=== PATIENT | female | born 1985 | race Caucasian/White ===

== ENCOUNTER 2020-01-10 13:57 | Outpatient (CLI) | payer BC ==
--- NOTE | 2020-01-10 17:16 | ULT ---
ULTRASOUND SOFT TISSUE OTHER (RIGHT AXILLA): History: Possible right axilla mass. FINDINGS/IMPRESSION: Sonographic evaluation of the region of palpable concern in the right axilla demonstrates a 1.3 x 0.4 x 0.9 cm non-shadowing well circumscribed oval hypoechoic solid mass with flow, consistent with a ly mph node. POS: [facility]
== END 2020-01-10 13:58 | disposition home or self-care (01) ==
LOC: BICULT 13:57
PROVIDERS: ATTEND Internal Medicine
DX: R22.31 Localized swelling, mass and lump, right upper limb (principal)
CPT/HCPCS: 76999

== ENCOUNTER 2020-01-28 08:18 | Outpatient (CLI) | payer BC ==
--- NOTE | 2020-01-28 08:57 | MMO ---
CLINICAL HISTORY: Patient is 34 years old and is seen for diagnostic exam and palpable abnormality in the right axilla. The patient has the following family history of breast cancer: maternal grandmother. VIEWS: The views performed were: bilateral craniocaudal with tomosynthesis; bilateral mediolateral oblique with tomosynthesis; and bilateral mediolateral with tomosynthesis. This study has been interpreted with the assistance of computer-aided detection. MAMMOGRAM FINDINGS: There are scattered fibroglandular densities. There are no suspicious masses, suspicious calcifications, or new areas of architectural distortion. IMPRESSION: THERE IS NO MAMMOGRAPHIC EVIDENCE OF MALIGNANCY. AGE APPROPRIATE SCREENING BASED ON RISK FACTORS IS RECOMMENDED. THE RESULTS OF THIS EXAM WERE SENT TO THE PATIENT. ACR BI-RADS Category 1 - Negative Further evaluation (including biopsy) should be based on clinical findings/suspicion. MAMMOGRAPHY NOTE: 1. A negative mammogram report should not delay a biopsy if a dominant of clinically suspicious mass is present. 2. Approximately 10% to 15% of breast cancers are not detected by mammography. 3. Adenosis and dense breasts may obscure an underlying neoplasm. Reported by: SHAYLA GIRALDO MD Electonically Signed: [id number]
== END 2020-01-28 08:19 | disposition home or self-care (01) ==
LOC: BICMAMMO 08:18
PROVIDERS: ATTEND Internal Medicine
DX: R59.0 Localized enlarged lymph nodes (principal)
CPT/HCPCS: 77066; G0279

== ENCOUNTER 2021-11-27 12:34 | Outpatient (CLI) | payer BC | END 2021-11-27 12:35 | disposition home or self-care (01) | LOC: BICULT 12:34 | PROVIDERS: ATTEND Internal Medicine | DX: R59.0 Localized enlarged lymph nodes (principal) | CPT/HCPCS: 76536 ==

== ENCOUNTER 2024-06-22 10:04 | Outpatient (CLI) | payer BC | END 2024-06-22 10:05 | disposition home or self-care (01) | LOC: BICRAD 10:04 | PROVIDERS: ATTEND Internal Medicine | DX: M25.561 Pain in right knee (principal); M46.1 Sacroiliitis, not elsewhere classified; M25.552 Pain in left hip | CPT/HCPCS: 72202 ==